=== PATIENT | female | born 1995 | race Caucasian/White ===

== ENCOUNTER → 2016-10-19 | Outpatient (CLI) | payer BC, OTHER ==
[~2016-10-19] MED LIST: BCPILLS PO; CYM/30 PO; GABA-112 PO; MONT1TAB3 PO; MULT-506 PO; PROP1TAB PO; RANI150T3 PO
[2016-10-22 00:36] LABS: CHLAMYDIA TRACH RNA*** NOT DETECTED (NOT DETECTED); GC (NEIS GONORRHOEAE)RNA** NOT DETECTED (NOT DETECTED)
== END | disposition home or self-care (01) ==
LOC: C.LABSPEC 17:35
PROVIDERS: ATTEND Physician Assistant
DX: Z01.419 Encounter for gynecological examination (general) (routine) without abnormal findings (principal); N89.8 Other specified noninflammatory disorders of vagina

== ENCOUNTER → 2016-10-19 | Outpatient (CLI) | payer BC | END | disposition home or self-care (01) | LOC: C.PAPS 08:15 | PROVIDERS: ATTEND Physician Assistant | DX: Z01.419 Encounter for gynecological examination (general) (routine) without abnormal findings (principal) ==

== ENCOUNTER → 2017-03-11 | Outpatient (CLI) | payer BC ==
--- NOTE | 2017-03-11 09:11 | DIAGNOSTIC IMAGING REPORT ---
ABDOMEN COMPLETE (US) CLINICAL HISTORY: EPIGASTRIC PAIN COMPARISON STUDY: CT scan dated 06/24/2010 FINDINGS: No focal hepatic masses are visualized. The pancreas appears sonographically normal. No gallstones are identified. The common bile duct is normal diameter measuring 2 mm. The spleen measures 9 cm. The right kidney measures 11.9 cm in length. The left kidney measures 10.6 cm in length. No renal masses are visualized. There is no hydronephrosis. There is no abdominal aortic dilatation. IMPRESSION: Normal ultrasound the upper abdomen. Electronically signed by: Dereck Ortega M.D. 03/11/2017 9:09 AM Dictated Date/Time: 03/11/2017 9:06 AM
== END | disposition home or self-care (01) ==
LOC: C.ULTRBC 08:14
PROVIDERS: ATTEND Internal Medicine Gastroenterology
DX: R10.13 Epigastric pain (principal)

== ENCOUNTER → 2017-04-08 | Day surgery (SDC) | payer BC ==
[2017-03-30 10:55] VITALS: Ht 167.6 cm; Wt 54.5 kg
[~2017-04-08] VITALS: Ht 167.6 cm; Wt 54.5 kg
[~2017-04-08] MED LIST changes: +LIDOCAINE HCL 2% 2 ML VIAL (20MG/ML) ONE; +PROPOFOL IV EMULSION 10 MG/ML 20 ML VIAL IV ONE
--- NOTE | 2017-04-08 14:55 | Endo History and Physical ---
History & Physical Date of Service: Apr 08, 2017. Chief Complaint: EPIGASTIC PAIN Referring Physician: DR. RICHARDS History of Present Illness For EGD Past Surgical History Hx Cardiac Surgery: No Hx Abdominal Surgery: Yes (LAP- OVARIAN CYSTECTOMY, LAP APPY) Hx of Implantable Prosthesis: No Hx Post-Op Nausea and Vomiting: No Hx Cancer Surgery: No Hx Thoracic Surgery: No Hx Orthopedic: Yes (RT SHOULDER DISLOCATED SURGERY X 2) Hx Urinary Tract Surgery: No Family History None Social History Smoking Status: Never Smoker Hx Substance Use: No Hx Alcohol Use: No Allergies Coded Allergies: Dextromethorphan (Verified Allergy, Mild, THROAT SWELLS, 03/30/17) Guaifenesin (Verified Allergy, Mild, THROAT SWELLS, 03/30/17) Yellow Dye (Verified Allergy, Mild, THROAT SWELLS, 03/30/17) Iodinated Diagnostic Agents (Verified Allergy, Unknown, KIDNEY FAILURE, ) Cefixime (Verified Adverse Reaction, Mild, GI SYMPTOMS, 03/30/17) Cefuroxime (Verified Adverse Reaction, Mild, GI SYMPTOMS, 03/30/17) Sodium Benzoate (Verified Adverse Reaction, Mild, GI SYMPTOMS, 03/30/17) Amitriptyline (Verified Adverse Reaction, Unknown, INCREASED DEPRESSION AND ANXIETY, 03/30/17) Fexofenadine (Verified Adverse Reaction, Unknown, HEADACHE, 03/30/17) Fluoxetine (Verified Adverse Reaction, Unknown, INCREASED DEPRESSION AND ANXIETY, 03/30/17) Current Medications Reported Home Medications Medications Dose Route/Sig Max Daily Dose Days Date Category Multivitamin (Multivitamins) Tab 1 Tab PO DAILY 03/30/17 Reported Zantac (Ranitidine HCl) 150 Mg Tab 150 Mg PO BID 03/30/17 Reported Singulair (Montelukast Sodium) 10 Mg Tab 10 Mg PO NOON 03/30/17 Reported Inderal (Propranolol HCl) 60 Mg Tab 60 Mg PO QAM 03/30/17 Reported Neurontin (Gabapentin) 100 Mg Cap 100 Mg PO BID 03/30/17 Reported Cymbalta (Duloxetine HCl) 30 Mg Cap 1 Cap PO QAM 03/30/17 Reported Control Pills (Miscellaneous) Tab 1 Tab PO DAILY 06/20/12 Reported Vital Signs Weight (Kilograms): 54.55 Height (Feet): 5 Height (Inches): 6 Date Time Temp Pulse Resp B/P (MAP) Pulse Ox O2 Delivery O2 Flow Rate FiO2 04/08/17 14:18 36.4 69 16 101/55 (70) 99 Room Air Physical Exam General Appearance: WD/WN Respiratory/Chest: Respiratory effort: no dyspnea Cardiovascular: Heart Auscultation: RRR Abdomen: Inspection & Palpation: soft Assessment and Plan Epigastric pain for EGD
--- NOTE | 2017-04-08 15:19 | Discharge Instructions ---
Endoscopy Patient Instructions Date / Procedure(s) Performed Apr 08, 2017. EGD Allergy Information Coded Allergies: Dextromethorphan (Verified Allergy, Mild, THROAT SWELLS, 03/30/17) Guaifenesin (Verified Allergy, Mild, THROAT SWELLS, 03/30/17) Yellow Dye (Verified Allergy, Mild, THROAT SWELLS, 03/30/17) Iodinated Diagnostic Agents (Verified Allergy, Unknown, KIDNEY FAILURE, ) Cefixime (Verified Adverse Reaction, Mild, GI SYMPTOMS, 03/30/17) Cefuroxime (Verified Adverse Reaction, Mild, GI SYMPTOMS, 03/30/17) Sodium Benzoate (Verified Adverse Reaction, Mild, GI SYMPTOMS, 03/30/17) Amitriptyline (Verified Adverse Reaction, Unknown, INCREASED DEPRESSION AND ANXIETY, 03/30/17) Fexofenadine (Verified Adverse Reaction, Unknown, HEADACHE, 03/30/17) Fluoxetine (Verified Adverse Reaction, Unknown, INCREASED DEPRESSION AND ANXIETY, 03/30/17) Discharge Date / Findings Apr 08, 2017. Normal EGD Medication Instructions Restart Stopped Medication(s): resume meds Reported Home Medications Medications Dose Route/Sig Max Daily Dose Days Date Category Multivitamin (Multivitamins) Tab 1 Tab PO DAILY 03/30/17 Reported Zantac (Ranitidine HCl) 150 Mg Tab 150 Mg PO BID 03/30/17 Reported Singulair (Montelukast Sodium) 10 Mg Tab 10 Mg PO NOON 03/30/17 Reported Inderal (Propranolol HCl) 60 Mg Tab 60 Mg PO QAM 03/30/17 Reported Neurontin (Gabapentin) 100 Mg Cap 100 Mg PO BID 03/30/17 Reported Cymbalta (Duloxetine HCl) 30 Mg Cap 1 Cap PO QAM 03/30/17 Reported Control Pills (Miscellaneous) Tab 1 Tab PO DAILY 06/20/12 Reported Provider Instructions Activity Restrictions - No exercising or heavy lifting for 24 hours. - Do not drink alcohol the day of the procedure. - Do not drive a car or operate machinery until the day after the procedure. - Do not make any important decisions or sign important papers in 24 hours after the procedure. Following Day: - Return to full activity which may include returning to work/school. Diet Start your diet with liquids and light foods (jello, soup, juice, toast). Then eat your usual diet if not nauseated. Treatment For Common After Affects For mild abdominal pain, bloating, or excessive gas: - Rest - Eat lightly - Lie on right side Follow-Up Information Follow-up with DR. RICHARDS as scheduled Anesthesia Information What You Should Know You have had a procedure that required some medicine to reduce anxiety and discomfort. This treatment is called moderate sedation. After receiving the treatment, you may be sleepy, but you will be able to breathe on your own. The effects of the treatment may last for several hours. Follow these instructions along with Activity/Diet recommendations noted above: * Do NOT do anything where dizziness or clumsiness would be dangerous. * Rest quietly at home today, then you can be up and about tomorrow. * Have a responsible person stay with you the rest of today. * You may have had an I.V. today. If so, you may take the dressing off later today. Recommendations Call your doctor if: * Trouble breathing * Continuous vomiting for more than 24 hours * Temperature above 101 degrees * Severe abdominal pain or bloating * Pain not relieved by pain medicine ordered * There is increased drainage or redness from any incision * A large amount of rectal bleeding greater than 2-3 tablespoons. (If you had a polyp/s removed or have hemorrhoids, a small amount of blood - from the rectum is to be expected.) * You have any unanswered questions or concerns. IN THE EVENT OF A SERIOUS EMERGENCY, GO TO THE NEAREST EMERGENCY ROOM Your discharge instructions were prepared by provider Deepak Morillo. Patient Instructions Signature Page Yohan German Patient (or Guardian) Signature/Date: I have read and understand the instructions given to me by my caregivers. Caregiver/RN/Doctor Signature/Date: The above-named patient and/or guardian has received patient instructions on this date. + Original Patient Signature Page (only) stays with chart. Please make copy for patient.
--- NOTE | 2017-04-08 15:25 | GI REPORT ---
Procedure Date: 04/08/2017 2:58 PM Procedure: Upper GI endoscopy Indications: Epigastric abdominal pain Medicines: Propofol total dose 140 mg IV, Lidocaine 60 mg IV Complications: No immediate complications. Estimated Blood Loss: Estimated blood loss was minimal. Procedure: Pre-Anesthesia Assessment: - Prior to the procedure, a History and Physical was performed, and patient medications, allergies and sensitivities were reviewed. The patient's tolerance of previous anesthesia was reviewed. - The risks and benefits of the procedure and the sedation options and risks were discussed with the patient. All questions were answered and informed consent was obtained. After obtaining informed consent, the endoscope was passed under direct vision. Throughout the procedure, the patient's blood pressure, pulse, and oxygen saturations were monitored continuously. The scope was introduced through the mouth, and advanced to the second part of duodenum. The upper GI endoscopy was accomplished without difficulty. The patient tolerated the procedure well. Findings: The examined esophagus was normal. The entire examined stomach was normal. The 2nd part of the duodenum was normal. Biopsies were taken with a cold forceps for histology. Impression: - Normal esophagus. - Normal stomach. - Normal 2nd part of the duodenum. Biopsied. Recommendation: - Discharge patient to home (ambulatory). - Continue present medications. - Await pathology results. - Return to primary care physician PRN. Deepak Morillo M.D. Deepak Morillo MD 04/08/2017 3:24:36 PM This report has been signed electronically. Note Initiated On: 04/08/2017 2:58 PM I attest to the content of the Intraoperative Record and orders documented therein, exceptions below
--- NOTE | 2017-04-08 15:46 | Anesthesiology Progress Note ---
Anesthesia Post Op Note Date & Time Apr 08, 2017 at 15:45 Vital Signs Pain Intensity: 0 Vital Signs Past 12 Hours Date Time Temp Pulse Resp B/P (MAP) Pulse Ox O2 Delivery O2 Flow Rate FiO2 04/08/17 15:33 68 18 120/69 (86) 100 Room Air 04/08/17 15:18 77 18 92/72 (79) 99 Room Air 04/08/17 14:18 36.4 69 16 101/55 (70) 99 Room Air Notes Mental Status: alert / awake / arousable, participated in evaluation Pt Amnestic to Procedure: Yes Nausea / Vomiting: adequately controlled Pain: adequately controlled Airway Patency, RR, SpO2: stable & adequate BP & HR: stable & adequate Hydration State: stable & adequate Anesthetic Complications: no major complications apparent
[2017-04-08 15:48] VITALS: BP 106/71; PULSE 73; O2SAT 100
== END | disposition home or self-care (01) ==
LOC: C.GI 13:39
PROVIDERS: ATTEND Internal Medicine Gastroenterology
DX: R10.13 Epigastric pain (principal); Z90.89 Acquired absence of other organs; Z98.890 Other specified postprocedural states; Z79.3 Long term (current) use of hormonal contraceptives; Z68.1 Body mass index [BMI] 19.9 or less, adult

== ENCOUNTER → 2017-06-03 | Outpatient (CLI) | payer BC ==
[~2017-06-03] MED LIST changes: -LIDOCAINE HCL 2% 2 ML VIAL (20MG/ML) ONE; -PROPOFOL IV EMULSION 10 MG/ML 20 ML VIAL IV ONE
[2017-06-03 20:24] LABS: BLOOD UREA NITROGEN 7 mg/dl (7-18); CARBON DIOXIDE 28 mmol/L (21-32); CHLORIDE 98 mmol/L (98-107); CREATININE 0.61 mg/dl (0.60-1.20); GLUCOSE 88 mg/dl (70-99); POTASSIUM 3.3 mmol/L (3.5-5.1); SODIUM 134 mmol/L (136-145)
== END | disposition home or self-care (01) ==
LOC: C.LAB 19:28
PROVIDERS: ATTEND Nurse Practitioner Family
DX: N10 Acute pyelonephritis (principal); Z87.448 Personal history of other diseases of urinary system

== ENCOUNTER → 2017-11-01 | Outpatient (CLI) | payer OTHER | END | disposition home or self-care (01) | LOC: C.LABSPEC 17:39 | PROVIDERS: ATTEND Physician Assistant | DX: Z12.4 Encounter for screening for malignant neoplasm of cervix (principal) ==